=== PATIENT | female | born 2000 | race Caucasian/White ===

== ENCOUNTER → 2020-02-12 | Outpatient (CLI) | payer OTHER ==
[~2020-02-12] VITALS: Ht 162.6 cm; Wt 64.0 kg
[2020-02-12 13:00] VITALS: BP 149/84; PULSE 20
[2020-02-12 14:15] VITALS: BP 128/83; PULSE 77
== END ==
LOC: COL.RAD 12:42
DX: E04.1 Nontoxic single thyroid nodule (principal)